=== PATIENT | female | born 2000 | race Hispanic/Latino ===

== ENCOUNTER 2024-07-15 08:09 | Emergency (ER) | payer MEDICAID ==
[2024-07-15] MEDS ORDERED: diphenhydrAMINE 50 MG/ML VIAL ONE ×2 (08:15→08:22)
[2024-07-15] MEDS ORDERED: methylPREDNISolone Sod Succ/PF 125 MG/2 ML VIAL ONE (08:26)
[2024-07-15] MEDS ORDERED: Famotidine/PF 20 mg/2ml Vial ONE (08:27)
== END 2024-07-15 09:57 | disposition home or self-care (01) ==
LOC: NAV ERS 08:09
DX: O9A.211 Injury, poisoning and certain other consequences of external causes complicating pregnancy, first trimester (principal); T78.1XXA Other adverse food reactions, not elsewhere classified, initial encounter; L53.9 Erythematous condition, unspecified; Z3A.01 Less than 8 weeks gestation of pregnancy
CPT/HCPCS: 96374; 96375; J1200; J2919; J3490